=== PATIENT | female | born 1955 | race Caucasian/White ===

== ENCOUNTER → 2017-04-21 15:39 | Outpatient (CLI) | payer OTHER, SELFPAY ==
[2017-04-21 15:21] VITALS: BP 132/84; BMI 33.0
--- NOTE | 2017-04-21 15:43 | RAD_ITS ---
STUDY: X-RAY - RIGHT SHOULDER REASON FOR EXAM: Female, 61 years old. Right shoulder pain following fall. History of breast cancer. TECHNIQUE: 4 view(s) of the shoulder. COMPARISON: None. FINDINGS: Normal glenohumeral articulation. There is mild widening of the acromioclavicular joint. Normal acromion. Normal humeral head and visualized proximal humerus. There is periarticular soft tissue calcification consistent with a calcific tendinitis. Normal visualized pulmonary apex. RAD/Shoulder min 2 Views IMPRESSION: Calcific tendinitis of the right shoulder. Mild widening right acromioclavicular joint. No demonstrated acute fracture. Electronically Signed: Walker Wakefield MD at 0:57 EST Tel , Service support ,
== END ==
PROVIDERS: Family Provider Family Medicine; PCP Family Medicine; Visit Provider Physician Assistant Surgical
DX: S46.911A Strain of unspecified muscle, fascia and tendon at shoulder and upper arm level, right arm, initial encounter (principal); X58.XXXA Exposure to other specified factors, initial encounter
CPT/HCPCS: 73030

== ENCOUNTER → 2018-02-18 12:04 | Outpatient (CLI) | payer OTHER, SELFPAY ==
[2018-01-27 13:18] VITALS: BMI 33.0
--- NOTE | 2018-02-18 12:07 | CT_ITS ---
STUDY: CT CHEST/THORAX WITH CONTRAST REASON FOR EXAM: Female, 62 years old. Left breast cancer, prior double mastectomy. RADIATION DOSAGE (If Supplied By Facility): CTDIvol = ( 13.59 ) mGy, DLP = ( 589.73 ) mGycm TECHNIQUE: Transaxial imaging was performed following intravenous administration of 100 ml of Isovue 300 contrast material. Multiplanar coronal and sagittal images were reformatted. Individualized dose optimization techniques were used for this CT. COMPARISON: PA and lateral chest x-ray January 28, 2017 FINDINGS: 4 mm noncalcified nodule seen in the anterolateral right middle lobe. There is minor subsegmental volume loss/atelectasis in the anteromedial lung bases and lingula of the left upper lobe. There is no demonstrated pleural abnormality. Normal heart and pericardium. There are calcifications of the coronary arteries. A few nonspecific right paratracheal lymph nodes measuring no greater than 1 cm. Normal hilar regions. Normal enhanced pulmonary arteries. There is mild atherosclerotic calcification of the aortic arch. There are multi-level degenerative changes of the thoracic spine, including dense calcification in the posterior longitudinal ligament T3-T7. The patient has undergone bilateral mastectomy. Heterogeneously enhancing 3.4 x 1.7 x 2.8 cm right thyroid mass extends posteriorly from the mid to lower pole of the right lobe There is no demonstrated abnormality of the visualized upper abdomen. CT/Chest WITH Contrast IMPRESSION: 1. Prior bilateral mastectomies. 2. 4 mm noncalcified nodule in the right middle lobe. 3 six-month follow-up advised to document stability. 3. Heterogeneous 3.4 cm mass projects posteriorly from the mid to lower pole of the right thyroid lobe. If indicated, this can BE further characterized with ultrasound and/or nuclear medicine thyroid uptake and scan. 4. Atherosclerotic calcifications of the coronary arteries. Electronically Signed: Timoteo Holt MD at 16:23 EST , Service support ,
--- NOTE | 2018-02-18 12:19 | BD_ITS ---
STUDY: DUAL ENERGY X-RAY ABSORPTIOMETRY / DXA REASON FOR EXAM: Female, 62 years old. Early menopause. Loss of height. TECHNIQUE: Bone Mineral Density (BMD) measurements of lumbar spine and bilateral hips were obtained. COMPARISON: Comparison is made with prior study dated March 21, 2015. FINDINGS: Lumbar Spine (L1-L4): g/cm2 (1.620) / T-score (3.8) / Z-score (5.3) Findings are suggestive of normal bone density with a low fracture risk. Left Femur Total: g/cm2 (1.299) / T-score (2.3) / Z-score (3.5) Left Femoral Neck: g/cm2 (1.224) / T-score (1.3) / Z-score (2.8) Right Femur Total: g/cm2 (1.305) / T-score (2.4) / Z-score (3.5) Right Femoral Neck: g/cm2 (1.201) / T-score (1.2) / Z-score (2.6) The T-Scores on the most recent prior examination were: Lumbar Spine (L1-L4): There has been worsening of bone density since the previous examination. Left Femur Total: which represents a worsening of 1.9%. Right Femur Total: which represents an improvement of 0.1%. BD/Dexa Bone Density Study IMPRESSION: The patient is considered normal as outlined below according to World Laith Organization (WHO) criteria with a low fracture risk. There has been worsening of bone density since the previous examination. Reference Information: The T-score is the number of standard deviations above or below the standard which is normal for young adults at their peak bone mineral density. The World Health Organization (WHO) interprets the T-scores as follows: Above -1 Normal bone density Between -1 and -2.5 Osteopenia Equal to / or below -2.5 Osteoporosis As a practical clinical guideline, osteopenia may be graded as follows: Mild -1 through -1.5 Moderate -1.6 through -2.0 Severe -2.1 through -2.4 The Z-score is the number of standard deviations above or below age-matched controls. A Z-score of less than -1.5 would be considered abnormal. References: 1. NIH Osteoporosis and Related Bone Diseases http://www.osteo.org 2. International Society for Clinical Densitometry http://www.iscd.org 3. National Osteoporosis Foundation http://www.nof.org Electronically Signed: Teddy Dumont MD at 11:05 EST Tel [phone], Service support ,
== END ==
PROVIDERS: Family Provider Family Medicine; PCP Family Medicine; Referring Provider Nurse Practitioner Family; Visit Provider Nurse Practitioner Family
DX: R05 Cough (principal); Z13.820 Encounter for screening for osteoporosis; Z78.0 Asymptomatic menopausal state; Z79.811 Long term (current) use of aromatase inhibitors; Z85.3 Personal history of malignant neoplasm of breast
CPT/HCPCS: 71260; 77080; Q9967

== ENCOUNTER → 2018-03-03 10:57 | Outpatient (CLI) | payer OTHER, SELFPAY ==
[2018-03-01 09:31] VITALS: BMI 32.8
--- NOTE | 2018-03-03 11:00 | US_ITS ---
STUDY: THYROID ULTRASOUND REASON FOR EXAM: Female, 62 years old. Right thyroid mass TECHNIQUE: Ultrasound evaluation of the thyroid was performed with real-time and static mayfield-scale imaging. COMPARISON: None. FINDINGS: RIGHT LOBE: The right lobe of the thyroid gland measures 5.3 x 2.1 x 2.7 cm. There is a homogeneous echotexture. Lower pole solid nodule measuring 3.1 x 1.9 x 2.1 cm. LEFT LOBE: The left lobe of the thyroid gland measures 5.0 x 1.6 x 1.6 cm. There is a homogeneous echotexture. Lower pole hypoechoic solid nodule measuring 1.3 x 0.9 x 0.8 cm ISTHMUS: The isthmus measures 5 mm. The regional lymph nodes are normal. US/Thyroid IMPRESSION: Enlarged thyroid with bilateral nodules. Electronically Signed: Ten Watt DO at 11:53 EST Tel , Service support ,
== END ==
PROVIDERS: Family Provider Family Medicine; PCP Family Medicine; Referring Provider Surgery; Visit Provider Surgery
DX: E04.1 Nontoxic single thyroid nodule (principal)
CPT/HCPCS: 76536

== ENCOUNTER → 2018-03-05 11:47 | Outpatient (CLI) | payer OTHER, SELFPAY ==
[2018-03-05 09:45] VITALS: BMI 32.8
--- NOTE | 2018-03-05 10:00 | ASPIG_PTH ---
PATIENT: ELISEO MELENDEZ LOC: [facility] U#:[id number] AGE/SX: 69/F ROOM: RE03/05/[address]: Dr. Edgar Osman MD : 1955 BED: DIS: SPEC #: [id number] RECD: 03/05/18 11:15 STATUS: VIDAL REGladys #: [id number] TEETEE: 03/05/18 10:[address]: Edgar Osman DEPT: CYTOLOGY RECD BY: Jeff Capellan ENTERED: 03/05/18 12:10 SP TYPE: ASP OUT OTHR DR: Dr. Prashant Reeves MD Tissues: A - Thyroid gland, NOS B - Thyroid gland, NOS Procedures: FNA Specimen Adequacy Pap Stain (control) Special Stain Group II Surgery Specimen Level IV Cytology Other HEADER OPERATION: Ultrasound-guided bilateral fine needle aspiration bilateral thyroid PRE-OP DIAGNOSIS: Multinodular goiter TISSUE SUBMITTED: A - Fine needle aspiration right thyroid (12 slides), B - Fine needle aspiration left thyroid (12 slides) DIAGNOSIS CYTOLOGY A. Right thyroid nodule, ultrasound-guided FNA (smears): Consistent with benign follicular nodule. Adequate for evaluation. B. Left thyroid nodule, ultrasound-guided FNA (smears): Cellular follicular lesion. A few atypical follicular cells of undetermined significance. Adequate for evaluation. SJ:kristen 03/08/18 COMMENT Correlation with clinical, radiologic findings and appropriate follow up are necessary. CYTOLOGY STUDY Slides are reviewed. CYTOLOGY GROSS A - Received are 12 smears labeled with the patient's name and designated per the requisition as right thyroid. Submitted for staining. B - Received are 12 smears labeled with the patient's name and designated per the requisition as left thyroid. Submitted for staining. 03/05/18 TC:5 CPT: 56624 x2
== END ==
PROVIDERS: Family Provider Family Medicine; PCP Family Medicine; Referring Provider Surgery; Visit Provider Surgery
DX: E04.2 Nontoxic multinodular goiter (principal)
CPT/HCPCS: 88161; 88172; 88305; 88313

== ENCOUNTER → 2018-05-04 09:13 | Outpatient (CLI) | payer OTHER, SELFPAY ==
[2018-03-12 13:48] VITALS: BMI 32.8
[2018-03-24 15:40] VITALS: BMI 32.8
--- NOTE | 2018-03-30 12:07 | EKG12_ITS ---
Test Reason : PRE OP Blood Pressure : / mmHG Vent. Rate : 092 BPM Atrial Rate : 092 BPM P-R Int : 180 ms QRS Dur : 082 ms QT Int : 364 ms P-R-T Axes : 057 036 070 degrees QTc Int : 450 ms Normal sinus rhythm Possible Left atrial enlargement Borderline ECG Confirmed by CHRIS WELLINGTON, JERSEY ([id number]), video news editor ARIANA MORTON ([id number]) on 03/31/2018 1:54:43 PM Referred By: Edgar Osman Confirmed By:JERSEY PEREZ MD
[2018-03-30 14:28] LABS: Anion Gap 9 (5-15); BUN 16 mg/dL (7-18); BUN/Creat Ratio 21.9 RATIO (10-20); Calcium,Total 8.7 mg/dL (8.5-10.1); Chloride 102 mmol/L (98-107); Creatinine, Serum 0.73 mg/dL (0.55-1.02); EST Glomerular Filtration Rate 85 mL/min (>60); Est Glom Filt Rate - Afr Amer 103 mL/min (>60); Glucose 295 mg/dL (74-106); Sodium Level 136 mmol/L (136-145)
[2018-03-30 14:29] LABS: Hemoglobin A1c 9.7 % (4.2-6.3)
== END ==
PROVIDERS: Family Provider Family Medicine; PCP Family Medicine; Referring Provider Surgery; Visit Provider Surgery
DX: Z01.818 Encounter for other preprocedural examination (principal); E11.9 Type 2 diabetes mellitus without complications
CPT/HCPCS: 36415; 80048; 83036; 93005

== ENCOUNTER → 2018-10-13 | Outpatient (CLI) | payer MEDICARE, OTHER, MEDICAID, SELFPAY ==
[2018-03-24 15:40] VITALS: BMI 32.8
[2018-08-16 15:32] VITALS: BMI 32.8
--- NOTE | 2018-10-13 14:14 | CT_ITS ---
STUDY: CT CHEST WITH CONTRAST REASON FOR EXAM: Female, 63 years old. Breast cancer. Follow-up pulmonary nodule. RADIATION DOSAGE (If Supplied By Facility): CTDIvol = ( 7.85 ) mGy, DLP = ( 618.49 ) mGycm TECHNIQUE: Transaxial imaging was performed following intravenous administration of 100ML ml of Isovue 300 contrast material. Coronal and sagittal reformatted images were created. Individualized dose optimization techniques were used for this CT. COMPARISON: 02/18/2018. FINDINGS: There is a stable 4 mm nodule in right middle lobe (image 76 series 4). There are no new pulmonary nodules. There are no pulmonary infiltrates or pleural effusions. There is linear atelectasis in the lung bases. There is no pneumothorax. The heart and pericardium are within normal limits. There is a stable exophytic nodule arising from the lower pole of the right lobe of the thyroid. There is no thoracic lymphadenopathy. There is no evidence of thoracic aortic aneurysm. Images through the upper abdomen demonstrate no significant abnormality. There are postsurgical changes noted from prior bilateral mastectomies. There is a stable 1.7 x 1.5 cm soft tissue nodule in the medial soft tissues of the right breast. There are no destructive osseous lesions. CT/Chest WITH Contrast IMPRESSION: Stable 4 mm nodule right middle lobe. No new nodules or masses. A follow-up CT in 6 months is recommended. Stable postsurgical changes from bilateral mastectomies. Stable 1.7 x 1.5 cm soft tissue nodule in the medial soft tissues of the right breast which is of uncertain etiology. Clinical correlation is recommended. Stable exophytic nodule arising from the lower pole of the right lobe of the thyroid. If indicated, further evaluation with ultrasound can be performed. Electronically Signed: George Erickson, at 14:58 EDT Tel , Service support ,
== END | disposition home or self-care (01) ==
PROVIDERS: Family Provider Family Medicine; PCP Family Medicine; Referring Provider Nurse Practitioner Family; Visit Provider Nurse Practitioner Family
DX: R91.1 Solitary pulmonary nodule (principal)
CPT/HCPCS: 71260; Q9967

== ENCOUNTER → 2019-05-13 11:51 | Outpatient (CLI) | payer MEDICARE, OTHER, SELFPAY ==
[2018-11-08 13:36] VITALS: BMI 33.7
[2019-04-04 12:49] VITALS: BMI 34.5
--- NOTE | 2019-05-13 11:55 | CT_ITS ---
STUDY: CT CHEST WITH CONTRAST REASON FOR EXAM: Female, 63 years old. stephania nodule f/u, hx breast ca x 5 years ago with double mast RADIATION DOSAGE (If Supplied By Facility): CTDIvol = ( 16.46 ) mGy, DLP = ( 1077.02 ) mGycm TECHNIQUE: Transaxial imaging was performed following intravenous administration of IV 100mL Isovue-300. Individualized dose optimization techniques were used for this CT. COMPARISON: 10/13/2018 FINDINGS: Status post bilateral mastectomy. There is no change in the 4 mm noncalcified nodule within the anterior right middle lobe the lungs on image 75 consistent with a noncalcified granuloma. This requires no further follow-up. There is no demonstrated pleural abnormality. Normal heart and pericardium. No change in a 3 cm nodule of decreased attenuation and enhancement of the posterior aspect of the right lobe of the thyroid gland and correlation with thyroid ultrasound is recommended. Normal mediastinum. Normal hilar regions. Normal enhanced pulmonary arteries. Normal aorta arch and descending thoracic aorta. Normal osseous structures. There is no demonstrated abnormality of the visualized upper abdomen. CT/Chest WITH Contrast IMPRESSION: 1. No change in 4 mm noncalcified right middle lobe nodule consistent with a noncalcified granuloma. This requires no further follow-up. 2. 3 cm nodule the posterior right lobe of thyroid gland and correlation with thyroid ultrasound is recommended. Electronically Signed: Kyaw Amin MD at 16:00 EST Tel , Service support ,
[2019-05-13 12:15] LABS: CREATININE FINGERSTICK 0.8 mg/dL (0.55-1.02); EGFR FINGERSTICK > 60.0000 mL/min (>60)
== END ==
PROVIDERS: Family Provider Family Medicine; PCP Family Medicine; Referring Provider Internal Medicine Medical Oncology; Visit Provider Internal Medicine Medical Oncology
DX: R91.1 Solitary pulmonary nodule (principal)
CPT/HCPCS: 71260; Q9967; A4216

== ENCOUNTER 2021-06-07 09:51 | Outpatient (CLI) | payer MEDICARE, OTHER, SELFPAY | END 2021-06-07 23:59 | disposition home or self-care (01) | PROVIDERS: PCP Family Medicine; Referring Provider Internal Medicine Medical Oncology; Visit Provider Internal Medicine Medical Oncology | DX: D50.9 Iron deficiency anemia, unspecified (principal) | CPT/HCPCS: 82274 ==